=== PATIENT | male | born 1940 | race Two or more races ===

== ENCOUNTER 2019-02-27 01:34 | Inpatient (IN) | payer MEDICARE, MEDICAID ==
[~2019-02-27] VITALS: Ht 165.1 cm; Wt 48.9 kg
[~2019-02-27 01:34] MED LIST: HYDR-3240 PO
[2019-02-27] MEDS ORDERED: SODIUM CHLORIDE FLUSH 10ML SYR IVF ONE (02:00)
[2019-02-27] MEDS ORDERED: SODIUM CHLORIDE FLUSH 10ML SYR IVF PRN (02:00)
--- NOTE | 2019-02-27 02:13 | NUR ---
REPORT CALLED TO FLOOR AND PT READY TO TRANSPORT TO FLOOR. ADMIT MD TO BEDSIDE.
[2019-02-27 02:17] LABS: MEAN CORPUSCULAR HEMOGLOBIN 32.9 pg (27.5-34.5); MEAN CORPUSCULAR HGB CONC 32.9 g/dL (33.2-36.2); MEAN CORPUSCULAR VOLUME 99.8 fL (81-97); MEAN PLATELET VOLUME 8.3 fL (7.4-10.4); PLATELET COUNT 240 x10^3/uL (130-400); RED BLOOD COUNT 3.89 x10^6/uL (4.38-5.82); RED CELL DISTRIBUTION WIDTH 16.3 % (9.4-14.8)
[2019-02-27 02:29] LABS: ALANINE AMINOTRANSFERASE 19 U/L (12-78); ALBUMIN 3.5 g/dL (3.4-5.0); ANION GAP 11 mmol/L (5-15); CALCIUM 8.8 mg/dL (8.5-10.1); CHLORIDE 98 mmol/L (98-107); CREATININE 8.56 mg/dL (0.7-1.3)
[2019-02-27 02:38] LABS: BASOPHILS # (AUTO) 0.01 x10^3/uL (0-0.1); BASOPHILS % (AUTO) 0 % (0-1); EOSINOPHILS # (AUTO) 0.09 x10^3/uL (0-0.4); EOSINOPHILS % (AUTO) 1 % (1-7); LYMPHOCYTES % (AUTO) 6 % (22-44); MD SCAN; MONOCYTES # (AUTO) 1.42 x10^3/uL (0.2-0.8); MONOCYTES % (AUTO) 7 % (2-9); NEUTROPHILS # (AUTO) 16.42 x10^3/uL (1.8-6.8); NEUTROPHILS % (AUTO) 86 % (42-75)
[2019-02-27 02:46] LABS: ALKALINE PHOSPHATASE 88 U/L (45-117); BILIRUBIN,TOTAL 0.4 mg/dL (0.2-1.0); TOTAL PROTEIN 8.1 g/dL (6.4-8.2)
[2019-02-27 02:48] VITALS: BP 169/70
[2019-02-27] MEDS ORDERED: hydrALAzine 20 MG/ML, 1ML IVPush PRN (03:00)
[2019-02-27] MEDS ORDERED: ONDANSETRON 2MG/ML, 2ML IVPush PRN (03:00)
[2019-02-27] MEDS ORDERED: NITROGLYCERIN 0.4 MG BOTTLE (25 TABS) SL PRN (03:00)
[2019-02-27] MEDS ORDERED: morphine SULFATE 10 MG/ML, 1ML IVPush PRN (03:00)
[2019-02-27] MEDS ORDERED: NITROGLYCERIN 0.4 MG/SPRAY SL PRN (03:00)
[2019-02-27 03:38] LABS: TROPONIN I 0.083 ng/mL (0.000-0.045)
[2019-02-27 03:47] LABS: HEMOGLOBIN A1C 7.2 % (4.2-6.3)
[2019-02-27] MEDS: HEPARIN 5,000 UNITS/ML, 1ML SQ SCH ×3 (04:13→20:41)
[2019-02-27] MEDS: INSULIN LISPRO 100 UNITS/ML, PEN SQ-INSULIN SCH ×5 (04:14→20:41)
[2019-02-27] MEDS: AZITHROMYCIN 500 MG in SODIUM CHLORIDE 0.9% 250 ML IV SCH (06:36)
[2019-02-27 07:26] VITALS: BP 149/64
[2019-02-27] MEDS ORDERED: FERR325T18 PO (07:58)
[2019-02-27] MEDS ORDERED: ASPI-496 PO (07:58)
[2019-02-27] MEDS ORDERED: AMLO-150 PO (07:58)
[2019-02-27] MEDS ORDERED: GLIP2.5T3 PO (07:58)
[2019-02-27] MEDS ORDERED: CALC667T PO (07:58)
[2019-02-27] MEDS ORDERED: CHOL2000 PO (07:58)
[2019-02-27] MEDS ORDERED: CARV6.252 PO (07:58)
[2019-02-27] MEDS ORDERED: LANT1000 PO (07:58)
[2019-02-27 09:54] LABS: ALBUMIN 3.3 g/dL (3.4-5.0)
[2019-02-27 09:56] LABS: TOTAL PROTEIN 7.8 g/dL (6.4-8.2)
[2019-02-27] MEDS ORDERED: LIDOCAINE-MPF 1%, 5ML ONE (10:38)
[2019-02-27 12:24] VITALS: BP 158/65
[2019-02-27 19:48] VITALS: BP 165/66
[2019-02-27] MEDS: CEFTRIAXONE PMX 1GM/50ML 50 ML IV SCH (23:17)
[2019-02-28 02:43] VITALS: BP 160/68
[2019-02-28 05:02] LABS: BASOPHILS # (AUTO) 0.03 x10^3/uL (0-0.1); BASOPHILS % (AUTO) 0 % (0-1); EOSINOPHILS # (AUTO) 0.08 x10^3/uL (0-0.4); EOSINOPHILS % (AUTO) 1 % (1-7); LYMPHOCYTES # (AUTO) 1.32 x10^3/uL (1-3.4); LYMPHOCYTES % (AUTO) 11 % (22-44); MD NO; MEAN CORPUSCULAR HGB CONC 32.6 g/dL (33.2-36.2); MEAN CORPUSCULAR VOLUME 101.4 fL (81-97); MEAN PLATELET VOLUME 8.9 fL (7.4-10.4); MONOCYTES # (AUTO) 0.77 x10^3/uL (0.2-0.8); MONOCYTES % (AUTO) 6 % (2-9); NEUTROPHILS # (AUTO) 9.83 x10^3/uL (1.8-6.8); NEUTROPHILS % (AUTO) 82 % (42-75); PLATELET COUNT 218 x10^3/uL (130-400); RED BLOOD COUNT 3.85 x10^6/uL (4.38-5.82); RED CELL DISTRIBUTION WIDTH 16.5 % (9.4-14.8)
[2019-02-28 05:09] LABS: ALBUMIN 3.1 g/dL (3.4-5.0); ANION GAP 11 mmol/L (5-15); CALCIUM 8.4 mg/dL (8.5-10.1); CHLORIDE 99 mmol/L (98-107)
[2019-02-28 05:13] LABS: % IRON SATURATION 18 % (20-55); ALANINE AMINOTRANSFERASE 16 U/L (12-78); ALKALINE PHOSPHATASE 81 U/L (45-117); BILIRUBIN,TOTAL 0.4 mg/dL (0.2-1.0); CREATININE 7.14 mg/dL (0.7-1.3); IRON LEVEL 41 mcg/dL (65-175); TOTAL IRON BINDING CAPACITY 222 mcg/dL (250-450); TOTAL PROTEIN 7.4 g/dL (6.4-8.2); TROPONIN I 0.338 ng/mL (0.000-0.045)
[2019-02-28] MEDS: HEPARIN 5,000 UNITS/ML, 1ML SQ SCH ×3 (05:48→20:12)
[2019-02-28] MEDS: AZITHROMYCIN 500 MG in SODIUM CHLORIDE 0.9% 250 ML IV SCH (05:49)
[2019-02-28 06:56] VITALS: BP 175/72
[2019-02-28] MEDS: INSULIN LISPRO 100 UNITS/ML, PEN SQ-INSULIN SCH ×4 (07:00→20:13)
[2019-02-28 12:52] VITALS: BP 161/61
[2019-02-28] MEDS: ACETAMINOPHEN 325 MG TABLET PO PRN (17:14)
[2019-02-28 19:19] VITALS: BP 120/57
[2019-02-28] MEDS ORDERED: INSULIN LISPRO 100 UNITS/ML, PEN SQ-INSULIN ONE (21:00)
[2019-02-28] MEDS: CEFTRIAXONE PMX 1GM/50ML 50 ML IV SCH (23:09)
[2019-03-01 00:59] VITALS: BP 128/55
[2019-03-01 04:52] LABS: BASOPHILS # (AUTO) 0.02 x10^3/uL (0-0.1); BASOPHILS % (AUTO) 0 % (0-1); EOSINOPHILS # (AUTO) 0.11 x10^3/uL (0-0.4); EOSINOPHILS % (AUTO) 1 % (1-7); LYMPHOCYTES # (AUTO) 1.45 x10^3/uL (1-3.4); LYMPHOCYTES % (AUTO) 14 % (22-44); MD NO; MEAN CORPUSCULAR HEMOGLOBIN 32.8 pg (27.5-34.5); MEAN CORPUSCULAR HGB CONC 32.4 g/dL (33.2-36.2); MEAN CORPUSCULAR VOLUME 101.3 fL (81-97); MEAN PLATELET VOLUME 8.9 fL (7.4-10.4); MONOCYTES # (AUTO) 1.08 x10^3/uL (0.2-0.8); MONOCYTES % (AUTO) 11 % (2-9); NEUTROPHILS # (AUTO) 7.52 x10^3/uL (1.8-6.8); NEUTROPHILS % (AUTO) 74 % (42-75); PLATELET COUNT 203 x10^3/uL (130-400); RED BLOOD COUNT 3.76 x10^6/uL (4.38-5.82); RED CELL DISTRIBUTION WIDTH 16.8 % (9.4-14.8)
[2019-03-01] MEDS: AZITHROMYCIN 500 MG in SODIUM CHLORIDE 0.9% 250 ML IV SCH (04:59)
[2019-03-01] MEDS: HEPARIN 5,000 UNITS/ML, 1ML SQ SCH ×3 (04:59→20:51)
[2019-03-01 05:05] LABS: CALCIUM 8.2 mg/dL (8.5-10.1); CHLORIDE 97 mmol/L (98-107)
[2019-03-01 05:11] LABS: ALANINE AMINOTRANSFERASE 19 U/L (12-78); ALKALINE PHOSPHATASE 82 U/L (45-117); ANION GAP 9 mmol/L (5-15); BILIRUBIN,TOTAL 0.4 mg/dL (0.2-1.0); CREATININE 5.56 mg/dL (0.7-1.3); TOTAL PROTEIN 7.4 g/dL (6.4-8.2)
[2019-03-01 06:55] VITALS: BP 149/62
[2019-03-01] MEDS: INSULIN LISPRO 100 UNITS/ML, PEN SQ-INSULIN SCH ×4 (08:28→20:54)
[2019-03-01] MEDS ORDERED: AZIT500T PO ×2 (16:25)
[2019-03-01] MEDS ORDERED: CEFD300C37 PO ×2 (16:25)
[2019-03-01] MEDS: TEMPLATE NON-FORMULARY MED. (Lanthanum Carbonate** (Fosrenol**) 1,000 MG) PO SCH ×2 (16:30→21:00)
[2019-03-01 16:36] VITALS: BP 118/48
[2019-03-01] MEDS: CALCIUM ACETATE 667 MG CAPSULE PO SCH (16:56)
[2019-03-01] MEDS: FERROUS SULFATE 325 MG TABLET PO SCH ×2 (16:56→20:51)
[2019-03-01] MEDS: ACETAMINOPHEN 325 MG TABLET PO PRN (16:56)
[2019-03-01] MEDS: AMLODIPINE 5 MG TABLET PO SCH (16:56)
[2019-03-01] MEDS ORDERED: FERROUS SULFATE 325 MG TABLET PO SCH (17:00)
[2019-03-01 20:20] VITALS: BP 136/58
[2019-03-01] MEDS: CARVEDILOL 6.25 MG TABLET PO SCH (20:53)
[2019-03-01] MEDS ORDERED: INSULIN GLARGINE 100 UNITS/ML, PEN SQ-INSULIN SCH (21:00)
[2019-03-01] MEDS: CEFTRIAXONE PMX 1GM/50ML 50 ML IV SCH (22:47)
[2019-03-02 00:31] VITALS: BP 107/61
[2019-03-02] MEDS: HEPARIN 5,000 UNITS/ML, 1ML SQ SCH ×3 (05:12→20:40)
[2019-03-02] MEDS: AZITHROMYCIN 500 MG in SODIUM CHLORIDE 0.9% 250 ML IV SCH (05:12)
[2019-03-02 06:27] LABS: CHLORIDE 98 mmol/L (98-107)
[2019-03-02 06:34] LABS: ALANINE AMINOTRANSFERASE 17 U/L (12-78); ALBUMIN 2.9 g/dL (3.4-5.0); ALKALINE PHOSPHATASE 78 U/L (45-117); ANION GAP 11 mmol/L (5-15); BILIRUBIN,TOTAL 0.4 mg/dL (0.2-1.0); CALCIUM 8.1 mg/dL (8.5-10.1); CREATININE 5.28 mg/dL (0.7-1.3); TOTAL PROTEIN 7.3 g/dL (6.4-8.2)
[2019-03-02 07:13] VITALS: BP 153/63
[2019-03-02] MEDS: TEMPLATE NON-FORMULARY MED. (Lanthanum Carbonate** (Fosrenol**) 1,000 MG) PO SCH ×3 (08:57→20:40)
[2019-03-02] MEDS: ASPIRIN 81 MG TABLET EC PO SCH (09:05)
[2019-03-02] MEDS: AMLODIPINE 5 MG TABLET PO SCH (09:06)
[2019-03-02] MEDS: CARVEDILOL 6.25 MG TABLET PO SCH ×2 (09:06→20:40)
[2019-03-02] MEDS: CHOLECALCIFEROL 1,000 UNIT TABLET PO SCH (09:06)
[2019-03-02] MEDS: GLIPizide ER 2.5 MG TABLET PO SCH (09:06)
[2019-03-02] MEDS: FERROUS SULFATE 325 MG TABLET PO SCH ×3 (09:06→20:40)
[2019-03-02] MEDS: CALCIUM ACETATE 667 MG CAPSULE PO SCH ×3 (09:06→17:16)
[2019-03-02] MEDS: INSULIN LISPRO 100 UNITS/ML, PEN SQ-INSULIN SCH ×5 (09:07→20:39)
[2019-03-02 14:10] VITALS: BP 141/64
[2019-03-02] MEDS ORDERED: POLYETHYLENE GLYCOL 17 GM PACKET PO PRN (16:30)
[2019-03-02] MEDS: INSULIN GLARGINE 100 UNITS/ML, PEN SQ-INSULIN SCH ×2 (17:17→18:14)
[2019-03-02] MEDS: SENNA/DOCUSATE TABLET PO SCH (18:13)
[2019-03-02 20:18] VITALS: BP 137/63
[2019-03-02] MEDS: CEFTRIAXONE PMX 1GM/50ML 50 ML IV SCH (23:00)
[2019-03-03] VITALS (7 sets, daily range): BP systolic 103–173; BP diastolic 44–68
[2019-03-03] MEDS: AZITHROMYCIN 500 MG in SODIUM CHLORIDE 0.9% 250 ML IV SCH (04:32)
[2019-03-03] MEDS: HEPARIN 5,000 UNITS/ML, 1ML SQ SCH ×3 (04:32→20:21)
[2019-03-03] MEDS: INSULIN LISPRO 100 UNITS/ML, PEN SQ-INSULIN SCH ×4 (07:00→20:20)
[2019-03-03] MEDS: TEMPLATE NON-FORMULARY MED. (Lanthanum Carbonate** (Fosrenol**) 1,000 MG) PO SCH ×3 (09:54→20:23)
[2019-03-03] MEDS: CALCIUM ACETATE 667 MG CAPSULE PO SCH ×3 (12:00→18:08)
[2019-03-03] MEDS: CARVEDILOL 6.25 MG TABLET PO SCH ×2 (12:10→20:21)
[2019-03-03] MEDS: AMLODIPINE 5 MG TABLET PO SCH (12:10)
[2019-03-03] MEDS: FERROUS SULFATE 325 MG TABLET PO SCH ×3 (12:23→20:21)
[2019-03-03] MEDS: GLIPizide ER 2.5 MG TABLET PO SCH (12:23)
[2019-03-03] MEDS: SENNA/DOCUSATE TABLET PO SCH (12:23)
[2019-03-03] MEDS: CHOLECALCIFEROL 1,000 UNIT TABLET PO SCH (12:23)
[2019-03-03] MEDS: ASPIRIN 81 MG TABLET EC PO SCH (12:23)
[2019-03-03] MEDS: INSULIN GLARGINE 100 UNITS/ML, PEN SQ-INSULIN SCH (12:33)
[2019-03-03] MEDS ORDERED: MAGNESIUM CITRATE 300ML ORAL SOL PO ONE (19:00)
[2019-03-03] MEDS: CEFTRIAXONE PMX 1GM/50ML 50 ML IV SCH (22:49)
[2019-03-04 01:06] VITALS: BP 112/58
[2019-03-04] MEDS: HEPARIN 5,000 UNITS/ML, 1ML SQ SCH ×3 (05:05→20:21)
[2019-03-04] MEDS: AZITHROMYCIN 500 MG in SODIUM CHLORIDE 0.9% 250 ML IV SCH (05:05)
[2019-03-04 05:26] LABS: BASOPHILS # (AUTO) 0.05 x10^3/uL (0-0.1); BASOPHILS % (AUTO) 1 % (0-1); EOSINOPHILS # (AUTO) 0.06 x10^3/uL (0-0.4); EOSINOPHILS % (AUTO) 1 % (1-7); LYMPHOCYTES # (AUTO) 1.47 x10^3/uL (1-3.4); LYMPHOCYTES % (AUTO) 16 % (22-44); MD NO; MEAN CORPUSCULAR HEMOGLOBIN 32.8 pg (27.5-34.5); MEAN CORPUSCULAR HGB CONC 32.7 g/dL (33.2-36.2); MEAN CORPUSCULAR VOLUME 100.1 fL (81-97); MEAN PLATELET VOLUME 9.6 fL (7.4-10.4); MONOCYTES # (AUTO) 0.87 x10^3/uL (0.2-0.8); MONOCYTES % (AUTO) 9 % (2-9); NEUTROPHILS # (AUTO) 7.03 x10^3/uL (1.8-6.8); NEUTROPHILS % (AUTO) 74 % (42-75); PLATELET COUNT 193 x10^3/uL (130-400); RED BLOOD COUNT 3.57 x10^6/uL (4.38-5.82); RED CELL DISTRIBUTION WIDTH 16.8 % (9.4-14.8)
[2019-03-04 05:33] LABS: CHLORIDE 96 mmol/L (98-107)
[2019-03-04 05:42] LABS: ALANINE AMINOTRANSFERASE 14 U/L (12-78); ALBUMIN 2.9 g/dL (3.4-5.0); ALKALINE PHOSPHATASE 81 U/L (45-117); ANION GAP 15 mmol/L (5-15); BILIRUBIN,TOTAL 0.3 mg/dL (0.2-1.0); CALCIUM 8.2 mg/dL (8.5-10.1); CREATININE 6.64 mg/dL (0.7-1.3); TOTAL PROTEIN 7.2 g/dL (6.4-8.2)
[2019-03-04 06:40] VITALS: BP 124/49
[2019-03-04] MEDS: INSULIN LISPRO 100 UNITS/ML, PEN SQ-INSULIN SCH ×4 (07:51→20:22)
[2019-03-04] MEDS: SENNA/DOCUSATE TABLET PO SCH (08:52)
[2019-03-04] MEDS: GLIPizide ER 2.5 MG TABLET PO SCH (08:53)
[2019-03-04] MEDS: CALCIUM ACETATE 667 MG CAPSULE PO SCH ×3 (08:53→17:24)
[2019-03-04] MEDS: ASPIRIN 81 MG TABLET EC PO SCH (08:53)
[2019-03-04] MEDS: CHOLECALCIFEROL 1,000 UNIT TABLET PO SCH (08:53)
[2019-03-04] MEDS: FERROUS SULFATE 325 MG TABLET PO SCH ×3 (08:53→20:20)
[2019-03-04] MEDS: INSULIN GLARGINE 100 UNITS/ML, PEN SQ-INSULIN SCH (08:59)
[2019-03-04] MEDS: TEMPLATE NON-FORMULARY MED. (Lanthanum Carbonate** (Fosrenol**) 1,000 MG) PO SCH ×3 (09:13→20:22)
[2019-03-04 10:34] VITALS: BP 149/51
[2019-03-04] MEDS: CARVEDILOL 6.25 MG TABLET PO SCH ×2 (10:47→20:21)
[2019-03-04] MEDS: AMLODIPINE 5 MG TABLET PO SCH (10:47)
[2019-03-04 12:40] VITALS: BP 149/68
[2019-03-04 18:36] VITALS: BP 146/74
[2019-03-04] MEDS: CEFTRIAXONE PMX 1GM/50ML 50 ML IV SCH (23:22)
[2019-03-05 00:38] VITALS: BP 143/74
[2019-03-05 05:11] LABS: BASOPHILS # (AUTO) 0.02 x10^3/uL (0-0.1); BASOPHILS % (AUTO) 0 % (0-1); EOSINOPHILS # (AUTO) 0.03 x10^3/uL (0-0.4); EOSINOPHILS % (AUTO) 0 % (1-7); LYMPHOCYTES # (AUTO) 1.15 x10^3/uL (1-3.4); LYMPHOCYTES % (AUTO) 12 % (22-44); MD NO; MEAN CORPUSCULAR HEMOGLOBIN 32.2 pg (27.5-34.5); MEAN CORPUSCULAR HGB CONC 32.6 g/dL (33.2-36.2); MEAN CORPUSCULAR VOLUME 98.7 fL (81-97); MONOCYTES # (AUTO) 0.68 x10^3/uL (0.2-0.8); MONOCYTES % (AUTO) 7 % (2-9); NEUTROPHILS # (AUTO) 7.84 x10^3/uL (1.8-6.8); NEUTROPHILS % (AUTO) 81 % (42-75); PLATELET COUNT 188 x10^3/uL (130-400); RED BLOOD COUNT 3.34 x10^6/uL (4.38-5.82); RED CELL DISTRIBUTION WIDTH 16.6 % (9.4-14.8)
[2019-03-05] MEDS: AZITHROMYCIN 500 MG in SODIUM CHLORIDE 0.9% 250 ML IV SCH (05:20)
[2019-03-05] MEDS: HEPARIN 5,000 UNITS/ML, 1ML SQ SCH ×3 (05:20→20:57)
[2019-03-05 05:21] LABS: ANION GAP 14 mmol/L (5-15); CALCIUM 8.3 mg/dL (8.5-10.1); CHLORIDE 92 mmol/L (98-107)
[2019-03-05 05:23] LABS: CREATININE 8.45 mg/dL (0.7-1.3)
[2019-03-05 08:02] VITALS: BP 115/55
[2019-03-05] MEDS: INSULIN LISPRO 100 UNITS/ML, PEN SQ-INSULIN SCH ×4 (08:18→20:57)
[2019-03-05] MEDS: SENNA/DOCUSATE TABLET PO SCH (08:19)
[2019-03-05] MEDS: CHOLECALCIFEROL 1,000 UNIT TABLET PO SCH (08:19)
[2019-03-05] MEDS: AMLODIPINE 5 MG TABLET PO SCH (08:19)
[2019-03-05] MEDS: ASPIRIN 81 MG TABLET EC PO SCH (08:19)
[2019-03-05] MEDS: CALCIUM ACETATE 667 MG CAPSULE PO SCH ×3 (08:19→16:25)
[2019-03-05] MEDS: FERROUS SULFATE 325 MG TABLET PO SCH ×3 (08:19→20:58)
[2019-03-05] MEDS: CARVEDILOL 6.25 MG TABLET PO SCH ×2 (08:19→20:58)
[2019-03-05] MEDS: GLIPizide ER 2.5 MG TABLET PO SCH (08:19)
[2019-03-05] MEDS: INSULIN GLARGINE 100 UNITS/ML, PEN SQ-INSULIN SCH (08:20)
[2019-03-05] MEDS: TEMPLATE NON-FORMULARY MED. (Lanthanum Carbonate** (Fosrenol**) 1,000 MG) PO SCH ×3 (08:20→21:00)
[2019-03-05 10:21] LABS: MICROSCOPIC INDICATED
[2019-03-05 10:30] LABS: CULTURE INDICATED? NO
[2019-03-05 13:31] VITALS: BP 130/48
[2019-03-05 19:03] VITALS: BP 174/64
[2019-03-05 21:03] VITALS: BP 146/55
[2019-03-05] MEDS: CEFTRIAXONE PMX 1GM/50ML 50 ML IV SCH (23:02)
[2019-03-06 00:23] VITALS: BP 149/65
[2019-03-06] MEDS: HEPARIN 5,000 UNITS/ML, 1ML SQ SCH ×3 (04:23→21:20)
[2019-03-06] MEDS: AZITHROMYCIN 500 MG in SODIUM CHLORIDE 0.9% 250 ML IV SCH (04:23)
[2019-03-06 05:25] LABS: BASOPHILS # (AUTO) 0.02 x10^3/uL (0-0.1); BASOPHILS % (AUTO) 0 % (0-1); EOSINOPHILS # (AUTO) 0.06 x10^3/uL (0-0.4); EOSINOPHILS % (AUTO) 1 % (1-7); LYMPHOCYTES # (AUTO) 1.12 x10^3/uL (1-3.4); LYMPHOCYTES % (AUTO) 13 % (22-44); MD NO; MEAN CORPUSCULAR HEMOGLOBIN 33.2 pg (27.5-34.5); MEAN CORPUSCULAR HGB CONC 33.4 g/dL (33.2-36.2); MEAN CORPUSCULAR VOLUME 99.7 fL (81-97); MEAN PLATELET VOLUME 10.7 fL (7.4-10.4); MONOCYTES # (AUTO) 0.74 x10^3/uL (0.2-0.8); MONOCYTES % (AUTO) 8 % (2-9); NEUTROPHILS # (AUTO) 6.98 x10^3/uL (1.8-6.8); NEUTROPHILS % (AUTO) 78 % (42-75); PLATELET COUNT 205 x10^3/uL (130-400); RED BLOOD COUNT 3.25 x10^6/uL (4.38-5.82); RED CELL DISTRIBUTION WIDTH 16.2 % (9.4-14.8)
[2019-03-06 05:36] LABS: ANION GAP 12 mmol/L (5-15); CALCIUM 8.3 mg/dL (8.5-10.1); CHLORIDE 96 mmol/L (98-107)
[2019-03-06 05:37] LABS: CREATININE 7.16 mg/dL (0.7-1.3)
[2019-03-06] MEDS: INSULIN LISPRO 100 UNITS/ML, PEN SQ-INSULIN SCH ×4 (07:00→21:21)
[2019-03-06 07:35] VITALS: BP 150/65
[2019-03-06] MEDS: CALCIUM ACETATE 667 MG CAPSULE PO SCH ×3 (12:00→17:51)
[2019-03-06] MEDS: TEMPLATE NON-FORMULARY MED. (Lanthanum Carbonate** (Fosrenol**) 1,000 MG) PO SCH ×3 (13:23→21:00)
[2019-03-06] MEDS: SENNA/DOCUSATE TABLET PO SCH (13:36)
[2019-03-06] MEDS: ASPIRIN 81 MG TABLET EC PO SCH (13:37)
[2019-03-06] MEDS: CHOLECALCIFEROL 1,000 UNIT TABLET PO SCH (13:37)
[2019-03-06] MEDS: AMLODIPINE 5 MG TABLET PO SCH (13:37)
[2019-03-06] MEDS: GLIPizide ER 2.5 MG TABLET PO SCH (13:38)
[2019-03-06] MEDS: FERROUS SULFATE 325 MG TABLET PO SCH ×3 (13:38→21:20)
[2019-03-06] MEDS: CARVEDILOL 6.25 MG TABLET PO SCH ×2 (13:38→21:20)
[2019-03-06] MEDS: INSULIN GLARGINE 100 UNITS/ML, PEN SQ-INSULIN SCH (13:39)
[2019-03-06 14:27] VITALS: BP 174/62
[2019-03-06 14:40] VITALS: BP 151/55
[2019-03-06 19:38] VITALS: BP 128/65
[2019-03-06] MEDS: CEFTRIAXONE PMX 1GM/50ML 50 ML IV SCH (22:54)
[2019-03-07 00:32] VITALS: BP 125/62
[2019-03-07 04:38] LABS: BASOPHILS # (AUTO) 0.03 x10^3/uL (0-0.1); BASOPHILS % (AUTO) 0 % (0-1); EOSINOPHILS # (AUTO) 0.13 x10^3/uL (0-0.4); EOSINOPHILS % (AUTO) 1 % (1-7); LYMPHOCYTES # (AUTO) 1.45 x10^3/uL (1-3.4); LYMPHOCYTES % (AUTO) 15 % (22-44); MD NO; MEAN CORPUSCULAR HEMOGLOBIN 32.2 pg (27.5-34.5); MEAN CORPUSCULAR HGB CONC 32.6 g/dL (33.2-36.2); MEAN CORPUSCULAR VOLUME 98.8 fL (81-97); MONOCYTES # (AUTO) 0.99 x10^3/uL (0.2-0.8); MONOCYTES % (AUTO) 10 % (2-9); NEUTROPHILS # (AUTO) 7.33 x10^3/uL (1.8-6.8); NEUTROPHILS % (AUTO) 74 % (42-75); PLATELET COUNT 222 x10^3/uL (130-400); RED BLOOD COUNT 3.41 x10^6/uL (4.38-5.82); RED CELL DISTRIBUTION WIDTH 16.3 % (9.4-14.8)
[2019-03-07 04:50] LABS: ALBUMIN 2.8 g/dL (3.4-5.0); ANION GAP 11 mmol/L (5-15); CALCIUM 8.5 mg/dL (8.5-10.1); CHLORIDE 97 mmol/L (98-107)
[2019-03-07 04:53] LABS: ALANINE AMINOTRANSFERASE 16 U/L (12-78); ALKALINE PHOSPHATASE 83 U/L (45-117); BILIRUBIN,TOTAL 0.3 mg/dL (0.2-1.0); TOTAL PROTEIN 7.3 g/dL (6.4-8.2)
[2019-03-07] MEDS: HEPARIN 5,000 UNITS/ML, 1ML SQ SCH ×2 (05:04→11:45)
[2019-03-07] MEDS: AZITHROMYCIN 500 MG in SODIUM CHLORIDE 0.9% 250 ML IV SCH (05:05)
[2019-03-07 07:05] VITALS: BP 134/51
[2019-03-07] MEDS: CALCIUM ACETATE 667 MG CAPSULE PO SCH ×2 (08:36→11:45)
[2019-03-07] MEDS: CARVEDILOL 6.25 MG TABLET PO SCH (08:37)
[2019-03-07] MEDS: ASPIRIN 81 MG TABLET EC PO SCH (08:38)
[2019-03-07] MEDS: GLIPizide ER 2.5 MG TABLET PO SCH (08:38)
[2019-03-07] MEDS: AMLODIPINE 5 MG TABLET PO SCH (08:38)
[2019-03-07] MEDS: FERROUS SULFATE 325 MG TABLET PO SCH (08:38)
[2019-03-07] MEDS: CHOLECALCIFEROL 1,000 UNIT TABLET PO SCH (08:39)
[2019-03-07] MEDS: SENNA/DOCUSATE TABLET PO SCH (08:39)
[2019-03-07] MEDS: INSULIN GLARGINE 100 UNITS/ML, PEN SQ-INSULIN SCH (08:46)
[2019-03-07] MEDS: INSULIN LISPRO 100 UNITS/ML, PEN SQ-INSULIN SCH ×2 (08:46→11:00)
[2019-03-07] MEDS: TEMPLATE NON-FORMULARY MED. (Lanthanum Carbonate** (Fosrenol**) 1,000 MG) PO SCH (08:46)
[2019-03-07 12:52] VITALS: BP 135/56
== END 2019-03-07 13:48 | DRG 871 ==
LOC: ED 02:09 → EDIP 02:16 → 4WST 02:45
PROVIDERS: ADMIT Family Medicine; ATTEND Family Medicine
PROC: 0W993ZZ Drainage of Right Pleural Cavity, Percutaneous Approach (ICD-10-PCS; principal; 2019-02-27)
PROC: 5A1D70Z Performance of Urinary Filtration, Intermittent, Less than 6 Hours Per Day (ICD-10-PCS; 2019-02-27)
PROC: 5A1D70Z Performance of Urinary Filtration, Intermittent, Less than 6 Hours Per Day (ICD-10-PCS; 2019-03-01)
PROC: 5A1D70Z Performance of Urinary Filtration, Intermittent, Less than 6 Hours Per Day (ICD-10-PCS; 2019-03-03)
PROC: 5A1D70Z Performance of Urinary Filtration, Intermittent, Less than 6 Hours Per Day (ICD-10-PCS; 2019-03-05)
PROC: 5A1D70Z Performance of Urinary Filtration, Intermittent, Less than 6 Hours Per Day (ICD-10-PCS; 2019-03-06)
DX: A41.9 Sepsis, unspecified organism (principal); J96.21 Acute and chronic respiratory failure with hypoxia; N18.6 End stage renal disease; I50.33 Acute on chronic diastolic (congestive) heart failure; J18.9 Pneumonia, unspecified organism; I13.2 Hypertensive heart and chronic kidney disease with heart failure and with stage 5 chronic kidney disease, or end stage renal disease; J44.0 Chronic obstructive pulmonary disease with (acute) lower respiratory infection; J91.8 Pleural effusion in other conditions classified elsewhere; D64.9 Anemia, unspecified; E11.22 Type 2 diabetes mellitus with diabetic chronic kidney disease; E11.65 Type 2 diabetes mellitus with hyperglycemia; E78.5 Hyperlipidemia, unspecified; E87.5 Hyperkalemia; I35.1 Nonrheumatic aortic (valve) insufficiency; N25.0 Renal osteodystrophy; Z99.2 Dependence on renal dialysis; Z79.4 Long term (current) use of insulin; Z87.891 Personal history of nicotine dependence; Z91.19 Patient's noncompliance with other medical treatment and regimen; Z99.81 Dependence on supplemental oxygen; Z91.14 Patient's other noncompliance with medication regimen; Z79.82 Long term (current) use of aspirin; Z79.899 Other long term (current) drug therapy
CPT/HCPCS: 32555; 36415; 71045; 80048; 80053; 81001; 82040; 82306; 82728; 82945; 82947; 82962; 83036; 83540; 83550; 83605; 83615; 83735; 83880; 83970; 84100; 84155; 84157; 84484; 85025; 86705; 86706; 86803; 87040; 87070; 87075; 87205; 87340; 88112; 88305; 89051; 93005; 93306; G0378; J0456; J0696; J1644; J1815; J7050